=== PATIENT | female | born 1955 | race Caucasian/White ===

== ENCOUNTER 2023-09-20 13:25 | Outpatient (CLI) | payer BC, SELFPAY ==
--- NOTE | 2023-09-20 14:00 | CTR_ITS ---
PROCEDURE INFORMATION: Exam: CT Abdomen And Pelvis Without And With Contrast Exam date and time: 09/20/2023 2:13 PM Age: 68 years old Clinical indication: Condition or disease; Other: Adrenal nodule, primary cancer: Breast; Additional info: Adrenal nodule, adrenal protocol TECHNIQUE: Imaging protocol: Computed tomography of the abdomen and pelvis without and with contrast. Radiation optimization: All CT scans at this facility use at least one of these dose optimization techniques: automated exposure control; mA and/or kV adjustment per patient size (includes targeted exams where dose is matched to clinical indication); or iterative reconstruction. Contrast material: OMNI 350; Contrast volume: 95 ml; Contrast route: INTRAVENOUS (IV); COMPARISON: No relevant prior studies available. RADIATION DOSE METRICS: Total DLP (mGy-cm): 442.39 FINDINGS: Lungs: Marked pulmonary emphysema. Diaphragm: Small hiatal hernia. Liver: No significant liver pathology. Gallbladder and bile ducts: No significant gallbladder pathology. No biliary dilatation. Pancreas: No significant pancreatic pathology. Spleen: No significant splenic pathology. Adrenal glands: Right adrenal gland is unremarkable. There is diffuse thickening of the left adrenal gland with low attenuation and a ovoid nodule of the medial limb measuring 1.8 x 1.3 cm consistent with adenomatous changes. Kidneys and ureters: Nonobstructive 2 mm calculus lower pole right kidney. There are renal cortical cysts and subcentimeter cortical hypodensities which are indeterminate by criteria but statistically most likely represent cysts. Stomach and bowel: There is mural thickening of the distal stomach. There is a abundant retained material in the stomach.No enlarged nodes by criteria. Appendix: No appendiceal pathology evident. Intraperitoneal space: No ascites. Vasculature: No abdominal aortic aneurysm. Lymph nodes: See Stomach and bowel finding. Urinary bladder: No significant pathology. Reproductive: No significant pathology. Bones/joints: Moderate degenerative change present in the spine. Soft tissues: Unremarkable. CT/CT abdomen wo/w con [id number] IMPRESSION: 1. No evidence of metastatic disease. Adenomatous changes of the left adrenal gland. 2. Nonobstructive right renal calculus. 3. Mural thickening of the distal stomach with large amount of retained material in the gastric lumen; clinical correlation recommended as endoscopy may be warranted.
[2023-09-20 14:11] LABS: Blood Urea Nitrogen 14 mg/dL (8-23); Glomerular Filtration Rate 83.7 mL/min (90-130)
[2023-09-20] MEDS: iohexol 350 mg/mL 500 mL Btl (per mL) IV (14:19)
[2023-09-20 15:43] LABS: Alanine Aminotransferase 14 U/L (0-33); Albumin Level 4.5 g/dL (3.5-5.2); Alkaline Phosphatase 77 U/L (35-105); Anion Gap 17.9 (5-19); Aspartate Amino Transferase 16 U/L (0-32); Blood Urea Nitrogen 15 mg/dL (8-23); Calcium 9.6 mg/dL (8.5-10.5); Carbon Dioxide 24 mmol/L (22-29); Chloride 102 mmol/L (98-107); Globulin 2.4 g/dL (1.3-4.6); Glomerular Filtration Rate 83.7 mL/min (90-130); Glucose 125 mg/dL (65-115); Osmolality Calculated 292 mOsm/kg (285-295); Potassium 3.9 mmol/L (3.5-5.1); Sodium 140 mmol/L (136-145); Total Bilirubin 0.4 mg/dL (0.15-1.2); Total Protein 6.9 g/dL (6.6-8.7)
[2023-09-24 22:46] LABS: Plasma Renin Activity LC/MS/MS 1.33 ng/mL/h (0.25-5.82)
== END 2023-09-20 13:26 | disposition home or self-care (01) ==
LOC: RAD 13:27
PROVIDERS: PCP Family Medicine; Visit Provider Internal Medicine
DX: E27.8 Other specified disorders of adrenal gland (principal); R79.89 Other specified abnormal findings of blood chemistry; N20.0 Calculus of kidney; R93.3 Abnormal findings on diagnostic imaging of other parts of digestive tract
CPT/HCPCS: 74170; 80053; 82088; 82565; 84244; 84520; Q9967

== ENCOUNTER 2023-09-22 10:46 | Outpatient (CLI) | payer BC, SELFPAY ==
[2023-09-22 11:29] LABS: Urine Creatinine 41 mg/dL (28-217)
[2023-09-22 11:48] LABS: Total Volume Urine 2200 ml
[2023-09-25 23:01] LABS: Calculated Total (E+NE) 88 mcg/24 h (26-121); Metanephrines Total Urine 2200 mL; Urine Metanephrines Total 741 mcg/24 h (224-832)
[2023-09-27 17:45] LABS: Total Urine 2200 mL; Urine Creatinine 0.89 g/24 h (0.50-2.15)
== END 2023-09-22 10:47 | disposition home or self-care (01) ==
LOC: LAB 10:47
PROVIDERS: PCP Family Medicine; Visit Provider Internal Medicine
DX: E27.8 Other specified disorders of adrenal gland (principal); R79.89 Other specified abnormal findings of blood chemistry
CPT/HCPCS: 82384; 82530; 82570; 83835

== ENCOUNTER → 2024-01-12 13:00 | Outpatient (BNVA) | payer MEDICARE, MEDICAID, SELFPAY | PROVIDERS: PCP Family Medicine; Visit Provider Nurse Practitioner Family | DX: L30.9 Dermatitis, unspecified (principal); L57.0 Actinic keratosis; L81.0 Postinflammatory hyperpigmentation; L29.8 Other pruritus | CPT/HCPCS: 17000; 99203 ==